=== PATIENT | female | born 1975 | race Caucasian/White ===

== ENCOUNTER → 2018-02-23 | Outpatient (CLI) | payer OTHER ==
[~2018-02-23] MED LIST: ASPIRIN325 PO; AZITHROMYCIN 2250 MG PO; CELEXA40 MG PO; CYMBALTA20 MG PO; FOLIC ACID1 MG PO; KEPPRA 500 MG500 M1 PO; KEPPRA 500 MG500 MG PO; LISINOPRIL-HCT1 EACH PO; LORTAB ELIXER; MAGOX 400400 MG PO; NAPROSYN500 MG PO; PRENATAL PLUS1 EAC5 PO; TUMS PO; VIIBRYD40 MG PO; VITAMIN B-1100 MG PO
== END ==
LOC: M.ULTRA 07:56
DX: N93.8 Other specified abnormal uterine and vaginal bleeding (principal); N83.02 Follicular cyst of left ovary; N83.01 Follicular cyst of right ovary

== ENCOUNTER → 2019-11-07 | Outpatient (CLI) | payer OTHER ==
--- NOTE | ~2019-11-07 | EEG ---
[address] [address] EEG STUDY REPORT Name: FAUSTINO POWERS Room: [facility]#: [id number] Admission: 11/07/19 Attend Phys: Shaheen Bloom MD Discharge: Date of : 71 Report #: [id number] THIS REPORT FOR: //name// CC: Chen Bloom DATE OF SERVICE: 11/07/2019 This patient is being evaluated for the possibility of seizure. EEG was done by placing the electrodes by standard 10-20 system of electrode placement. Both referential and sequential montages were used for recording. Background activity in this patient's EEG is about 11 Hz and 40 microvolts. The patient became drowsy that is associated with bilateral slowing. Photic stimulation was unremarkable. Throughout the record, no active epileptiform activity was noticed. IMPRESSION: This patient's EEG is unremarkable. Thank you very much for this referral. By: [id number] Bloom MD /nt
[2019-11-07 11:25] LABS: ALBUMIN 3.4 g/dL (3.4-5.0); CALCIUM 8.5 mg/dL (8.5-10.1); CREATININE 0.8 mg/dL (0.6-1.3); POTASSIUM 4.2 mmol/L (3.5-5.1); TOTAL BILIRUBIN 0.4 mg/dL (<0.1-1.0); TOTAL PROTEIN 7.4 g/dL (6.4-8.2)
== END ==
LOC: M.LAB 08:15 → M.MRI 11:30
PROVIDERS: Psychiatry & Neurology Neuromuscular Medicine
DX: G40.209 Localization-related (focal) (partial) symptomatic epilepsy and epileptic syndromes with complex partial seizures, not intractable, without status epilepticus (principal); R90.82 White matter disease, unspecified; J34.89 Other specified disorders of nose and nasal sinuses; Z88.8 Allergy status to other drugs, medicaments and biological substances; Z88.2 Allergy status to sulfonamides